=== PATIENT | male | born 1965 | race Caucasian/White ===

== ENCOUNTER 2017-12-07 15:25 | Emergency (ER) | payer OTHER ==
[~2017-12-07] VITALS: Ht 172.7 cm; Wt 72.6 kg
[2017-12-07 15:25] VITALS: BP 135/79
--- NOTE | 2017-12-07 15:26 | NUR ---
PT BIBA BLS TO BED 3
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
[2017-12-07] MEDS ORDERED: ACETAMINOPHEN 325 MG TAB PO ONE (15:50)
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
--- NOTE | 2017-12-07 15:57 | NUR ---
REPORT GIVEN TO NOAH SAN
--- NOTE | 2017-12-07 16:00 | NUR ---
PT TAKEN TO CT
--- NOTE | 2017-12-07 16:04 | NUR ---
PT TAKEN TO CT IN WHEELCHAIR
[2017-12-07 18:20] VITALS: BP 131/76
== END 2017-12-07 18:21 | disposition home or self-care (01) ==
LOC: MED 15:25
DX: S01.03XA Puncture wound without foreign body of scalp, initial encounter (principal); S16.1XXA Strain of muscle, fascia and tendon at neck level, initial encounter; V29.9XXA Motorcycle rider (driver) (passenger) injured in unspecified traffic accident, initial encounter; Y93.55 Activity, bike riding; Y92.488 Other paved roadways as the place of occurrence of the external cause; Y99.8 Other external cause status
CPT/HCPCS: 70450; 72125; 90471; 90715; 99284